=== PATIENT | male | born 1990 | race Caucasian/White ===

== ENCOUNTER 2016-07-17 09:54 | Emergency (ER) | payer BC ==
[2016-07-17 10:43] VITALS: BP 170/93
--- NOTE | 2016-07-17 11:49 | UC ---
Respiratory Complaint HPI - HPI Summary HPI Summary: The patient comes in today for: 1. Cough, rhinitis: Onset: 2 weeks ago. Palliative/provocative: Nothing makes it better or worse except some tea. Quality: harsh cough. Region: Upper respiratory Severity: 0/10 Time: Cough comes and goes. Associated symptoms: He has been traveling on the airlines recently. Rhinitis: Yellow material. Cough: Present--yellow. Fevers: None Chest pain: None Dyspnea: None. Treatment: Sudafed. Wheezing: None. Nocturnal: The cough keeps him up at night. He states that he does not have any previous sleep problems. * - History of Current Complaint Chief Complaint: UCRespiratory Stated Complaint: URI Time Seen by Provider: 07/17/16 11:41 - Allergies/Home Medications Allergies/Adverse Reactions: Allergies Allergy/AdvReac Type Severity Reaction Status Date / Time No Known Allergies Allergy Verified 10/14/15 21:03 PMH/Surg Hx/FS Hx/Imm Hx Previously Healthy: No Endocrine History Of: Denies: Diabetes, Thyroid Disease, Hyperthyroidism, Hypothyroidism, Dyslipidemia Cardiovascular History Of: Denies: Cardiac Disorders, Hypertension - taking sudafed, Pacemaker/ICD, Myocardial Infarction, Congestive Heart Failure, Atrial Fibrillation, Deep Vein Thrombosis, Bleeding Disorders Respiratory History Of: Denies: COPD, Asthma, Bronchitis, Pneumonia, Pulmonary Embolism GI/ History Of: Reports: Gastroesophageal Reflux Denies: Ulcer, Gastrointestinal Bleed, Gall Bladder Disease, Kidney Stones, Diverticulitis, Renal Disease, Urosepsis Neurological History Of: Denies: TIA, CVA, Dementia, Seizures, Migraine Psychological History Of: Denies: Anxiety, Depression, Bipolar Disorder, Schizophrenia, Post Traumatic Stress Disorder Cancer History Of: Denies: Lung Cancer, Colorectal Cancer, Breast Cancer, Prostate Cancer, Cervical Cancer Other History Of: Negative For: HIV, Hepatitis B, Hepatitis C, Anticoagulant Therapy - Surgical History Surgical History: Yes Surgery Procedure, Year, and Place: adenoids removed as a child - Family History Known Family History: Positive: Cardiac Disease Negative: Hypertension, Renal Disease - Social History Occupation: Employed Full-time Alcohol Use: Rare Substance Use Type: None Smoking Status (MU): Never Smoked Tobacco - Immunization History Most Recent Influenza Vaccination: has not had Most Recent Tetanus Shot: up to date Review of Systems Constitutional: Negative Skin: Negative Eyes: Negative ENT: Nasal Discharge Respiratory: Cough Cardiovascular: Negative Gastrointestinal: Negative Genitourinary: Negative All Other Systems Reviewed And Are Negative: Yes Physical Exam Triage Information Reviewed: Yes Appearance: Well-Appearing, No Pain Distress, Well-Nourished Vital Signs: Initial Vital Signs Temp 98.8 F 07/17/16 10:39 Pulse 106 07/17/16 10:39 Resp 22 07/17/16 10:39 BP 170/93 07/17/16 10:39 Pulse Ox 100 07/17/16 10:39 Vital Signs Reviewed: Yes Eyes: Positive: Conjunctiva Clear. Negative: Discharge ENT: Positive: Normal ENT inspection. Negative: Pharyngeal erythema, Nasal congestion, Nasal drainage, TM bulging, TM dull, TM red, Tonsillar swelling, Tonsillar exudate Dental: Negative: Gross Decay/Caries @, Dental Fracture @ Neck: Positive: Supple, Nontender, No Lymphadenopathy. Negative: Nuchal Rigidity Respiratory: Positive: Lungs clear, No respiratory distress, No accessory muscle use. Negative: Crackles, Wheezing Cardiovascular: Positive: RRR, No Murmur Abdomen Description: Positive: Nontender, No Organomegaly, Soft. Negative: Distended, Guarding Musculoskeletal: Positive: Strength Intact, ROM Intact, No Edema Neurological: Positive: Alert, Muscle Tone Normal Psychological: Positive: Age Appropriate Behavior, Consolable Skin: Negative: rashes, breakdown UC Diagnostic Evaluation - Laboratory O2 Sat by Pulse Oximetry: 100 Respiratory Course/Dx - Course Course Of Treatment: Patient told of his treatment options. He wants some medication to suppress his cough for him to get some sleep. - Differential Dx/Diagnosis Differential Diagnosis/HQI/PQRI: Asthma, Bronchitis, Laryngitis, Sinusitis Provider Diagnoses: Sinusitis. Bronchitis Discharge - Discharge Plan Condition: Stable Disposition: HOME Patient Education Materials: Sinusitis (ED), Acute Bronchitis (ED) Referrals: Rach Boyd MD [Primary Care Provider] - 1 Week (Please see your primary care provider in a week to see how well you are doing. If you get worse, please be seen sooner in the ER or through us.)
== END 2016-07-17 12:02 | disposition home or self-care (01) ==
LOC: UCEAST 09:54
DX: J32.9 Chronic sinusitis, unspecified (principal); J40 Bronchitis, not specified as acute or chronic; K21.9 Gastro-esophageal reflux disease without esophagitis
CPT/HCPCS: 99211; G0463

== ENCOUNTER 2017-03-14 01:56 | Emergency (ER) | payer BC ==
[2017-03-14] MEDS ORDERED: predniSONE TAB* 20 MG PO ONE (03:12)
[2017-03-14 03:36] VITALS: BP 152/56
--- NOTE | 2017-03-27 21:12 | ED ---
Behzad Johnson Julia, scribed for Patel Marie MD on 03/14/17 at 0350 . Allergic Reaction/Systemic - HPI Summary HPI Summary: This patient is a 26 year old M presenting to [facility] with a chief complaint of allergic reaction to food occurring at 12:20 today. Patient reports gum numbness and pruritus and swelling of the face worse surrounding his L eye. The patient rates the pain 1/10 in severity. Pt took hydroxyzine [facility]. Pt has rosacea at baseline. - History of Current Complaint Chief Complaint: EDAllergicReaction Time Seen by Provider: 03/14/17 03:03 Hx Obtained From: Patient Onset/Duration: Sudden Onset Timing: Constant, Lasting Minutes Pain Intensity: 1 Pain Scale Used: 0-10 Numeric Character: Swelling, Pruritus Associated Signs And Symptoms: Positive: Other: - gum numbness, facial swelling and pruitis - Related Hx Possible Reaction To: Food - Allergies/Home Medications Allergies/Adverse Reactions: Allergies Allergy/AdvReac Type Severity Reaction Status Date / Time No Known Allergies Allergy Verified 10/14/15 21:03 PMH/Surg Hx/FS Hx/Imm Hx Endocrine/Hematology History: Denies: Hx Anticoagulant Therapy, Hx Diabetes, Hx Thyroid Disease Cardiovascular History: Denies: Hx Congestive Heart Failure, Hx Deep Vein Thrombosis, Hx Hypertension - taking sudafed, Hx Myocardial Infarction, Hx Pacemaker/ICD Respiratory History: Denies: Hx Asthma, Hx Chronic Obstructive Pulmonary Disease (COPD), Hx Lung Cancer, Hx Pneumonia, Hx Pulmonary Embolism GI History: Denies: Hx Gall Bladder Disease, Hx Gastrointestinal Bleed, Hx Ulcer, Hx Urosepsis History: Denies: Hx Kidney Stones, Hx Renal Disease Neurological History: Denies: Hx Dementia, Hx Migraine, Hx Seizures, Hx Transient Ischemic Attacks (TIA) Psychiatric History: Denies: Hx Anxiety, Hx Depression, Hx Schizophrenia, Hx Bipolar Disorder - Surgical History Surgery Procedure, Year, and Place: adenoids removed as a child Infectious Disease History: No Infectious Disease History: Denies: Hx Clostridium Difficile, Hx Hepatitis, Hx Human Immunodeficiency Virus (HIV), Hx of Known/Suspected MRSA, Hx Shingles, Hx Tuberculosis, Hx Known/ Suspected VRE, Hx Known/Suspected VRSA, History Other Infectious Disease, Traveled Outside the [place] in Last 30 Days - Family History Known Family History: Positive: Cardiac Disease Negative: Hypertension, Renal Disease - Social History Alcohol Use: Rare Substance Use Type: Reports: None Smoking Status (MU): Never Smoked Tobacco Review of Systems Positive: Dental Pain - gum numbness Positive: Other - facial swelling and pruitius, worse around L eye All Other Systems Reviewed And Are Negative: Yes Physical Exam Triage Information Reviewed: Yes Vital Signs On Initial Exam: Initial Vitals Temp Pulse Resp BP Pulse Ox 97.2 F 79 22 166/84 97 03/14/17 02:02 03/14/17 02:02 03/14/17 02:02 03/14/17 02:02 03/14/17 02:02 Vital Signs Reviewed: Yes Appearance: Positive: Obese - morbidly Skin: Positive: Skin Color Reflects Adequate Perfusion, Erythema @ - face Head/Face: Positive: Other - swelling of L orbital area Eyes: Positive: Other: - swelling around L eye ENT: Positive: Normal ENT inspection Respiratory/Lung Sounds: Positive: Wheezes Cardiovascular: Positive: Normal Abdomen Description: Positive: Nontender Musculoskeletal: Positive: Normal Neurological: Positive: Normal Psychiatric: Positive: Normal AVPU Assessment: Alert Diagnostics - Vital Signs Vital Signs Temp Pulse Resp BP Pulse Ox 03/14/17 03:30 73 20 152/56 91 03/14/17 03:09 81 20 160/66 99 03/14/17 03:08 82 17 97 03/14/17 02:02 97.2 F 79 22 166/84 97 - Laboratory Lab Statement: Any lab studies that have been ordered have been reviewed, and results considered in the medical decision making process. Allergic Reaction Course/Dx - Course Course Of Treatment: Patient presents with allergic reaction to food occurring at 12:20 today. Patient reports gum numbness and pruritus and swelling of the face worse surrounding his L eye. Patient took hydroxyzine [facility]. Pt was given Prednisone. Pt imporved and was dischared with dx of allergic reaction. - Diagnoses Provider Diagnoses: Allergic reaction Discharge - Discharge Plan Condition: Stable Disposition: HOME Prescriptions: predniSONE TAB* [Deltasone TAB*] 40 mg PO DAILY #10 tab Patient Education Materials: General Allergic Reaction (ED) Referrals: Rach Boyd MD [Primary Care Provider] - Additional Instructions: Patient is given prescription for Prednisone. RETURN TO THE EMERGENCY DEPARTMENT FOR CHANGING OR WORSENING SYMPTOMS. The documentation as recorded by the scribe, Roetzer,Xiao accurately reflects the service I personally performed and the decisions made by me, Patel Marie MD.
== END 2017-03-14 04:06 | disposition home or self-care (01) ==
LOC: ED 01:56
DX: T78.1XXA Other adverse food reactions, not elsewhere classified, initial encounter (principal); R20.0 Anesthesia of skin; L29.9 Pruritus, unspecified; R22.0 Localized swelling, mass and lump, head
CPT/HCPCS: 99282; J7512

== ENCOUNTER 2017-05-14 09:45 | Emergency (ER) | payer BC ==
--- NOTE | 2017-05-14 11:22 | RAD ---
Indication: Epigastric abdominal pain since May 09, 2017. Pain associated with eating. Comparison: No relevant prior exams available on the [facility] PACS for comparison. Technique: RIGHT upper quadrant ultrasound. Report: Large body habitus limits acoustic window. Appropriate direction flow documented in the portal and hepatic veins. 19.3 cm liver is increased in echogenicity. Negative for focal hepatic lesions. Negative for intrahepatic biliary dilatation. 6 mm common bile duct. Adequately distended gallbladder with multiple small dependent stones. Potential small volume of biliary sludge. Normal 2.4 mm gallbladder wall. Negative for pericholecystic fluid. Negative for sonographic Carrillo's sign. The pancreas is poorly visualized due to body habitus and bowel gas. No gross abnormality of the visualized pancreatic head and body. Negative for ascites. 11.7 cm RIGHT kidney is unremarkable. IMPRESSION: 1. Hepatomegaly with hepatosteatosis. 2. Cholelithiasis without secondary findings to suggest acute cholecystitis.
[2017-05-14 12:08] VITALS: BP 139/91
--- NOTE | 2017-05-14 12:30 | UC ---
- Progress Note Progress Note: Assumed care pending US. Known Gallstones. GB: Fatty liver, gallstones without cholelithiasis. He has no pain now. Most discomfort is post parandial. Re-Evaluation - Re-Evaluation First Eval Re-Evaluation Time: 12:30 Change: Improved Course/Dx - Course Course Of Treatment: Epigastric pain in morbidly obese gentleman. Known gallstones. US neg otherwise. Tx symptomatically. - Diagnoses Provider Diagnoses: Epigastric abdominal pain, Gastritis, Fatty infiltration of liver, Morbid obesity Discharge - Sign-Out/Discharge Documenting (check all that apply): Discharge - Discharge Plan Condition: Good Disposition: HOME Prescriptions: Famotidine TAB* [Pepcid 20 MG TAB*] 20 mg PO BID #20 tab Sucralfate TAB* [Carafate*] 1 gm PO ACHS #60 tab Referrals: Lory Cheek MD [Primary Care Provider] - Additional Instructions: double your omeprazole for the next 3-4 days. Avoid acidic foods, alcohol, caffeine. Return if worse, fevers, vomiting or other concerns. - Billing Disposition and Condition Condition: GOOD Disposition: HOME
--- NOTE | 2017-05-22 20:49 | UC ---
Yosef Johnson Jennifer, scribed for Antonia Kwok DO on 05/14/17 at 1010 . Abdominal Pain Male HPI - HPI Summary HPI Summary: The patient is a 26 year old male who complains of intermittent upper abdominal pain that began five days ago. The patient rates it a 6/10 and describes it as a sharp pain that lasts an hour with each episode. He reports that the abdominal pain would occur after every meal when it first began, but yesterday he switched to the BRAT diet and the abdominal pain only occurred after some meals. [facility]. The patient additionally complains of nausea, vomiting, and sweating when the pain occurs. He denies diarrhea. He adds that he had similar abdominal pain in college that was related to his diet and is currently trying to lose weight. - History of Current Complaint Chief Complaint: UCAbdominalPain Stated Complaint: ABD PAIN Time Seen by Provider: 05/14/17 09:47 Hx Obtained From: Patient Onset/Duration: Sudden Onset, Lasting Days - five days, Other - Intermittent pain; no pain in ICCC Timing: Intermittent Episodes Lasting: - one hour Severity Initially: Mild Severity Currently: None Pain Intensity: 0 Pain Scale Used: 0-10 Numeric Location: Epigastric Radiates: No Character: Sharp Aggravating Factor(s): Food Alleviating Factor(s): Nothing Associated Signs And Symptoms: Positive: Nausea, Vomiting, Other - Sweaty with onset of abdominal pain. Negative: Diarrhea - Allergies/Home Medications Allergies/Adverse Reactions: Allergies Allergy/AdvReac Type Severity Reaction Status Date / Time No Known Allergies Allergy Verified 05/14/17 09:58 Home Medications: Home Medications Bupropion XL* [Wellbutrin XL *] 150 mg PO DAILY 05/14/17 [History Confirmed ] PMH/Surg Hx/FS Hx/Imm Hx Previously Healthy: No - Previous abdominal pain GI/ History: Gastroesophageal Reflux, Other Other GI/ History: Gall stones Other History Of: Negative For: HIV, Hepatitis B, Hepatitis C, Anticoagulant Therapy - Surgical History Surgical History: Yes Surgery Procedure, Year, and Place: adenoids removed as a child - Family History Known Family History: Positive: Cardiac Disease, Diabetes, Other - [place] Negative: Hypertension, Renal Disease - Social History Occupation: Employed Full-time Alcohol Use: Rare Substance Use Type: None Smoking Status (MU): Never Smoked Tobacco - Immunization History Most Recent Influenza Vaccination: has not had Most Recent Tetanus Shot: up to date Review of Systems Constitutional: Other - Sweating with onset of abdominal pain Gastrointestinal: Negative - Diarrhea, Abdominal Pain, Vomiting, Nausea All Other Systems Reviewed And Are Negative: Yes Physical Exam - Summary Physical Exam Summary: Appearance: Well-Appearing, No Pain Distress, Well-Nourished Eyes: conjunctiva clear, no discharge ENT: Hearing grossly normal, no muffled/hoarse voice. Neck: Normal, Supple Respiratory/Lung Sounds: Lungs clear, Normal breath sounds, No respiratory distress, No accessory muscle use Cardiovascular: RRR, No murmur Abdomen: Nontender, Soft, no guarding, not distended Bowel Sounds: Present Musculoskeletal: Normal Neurological: Alert, muscle tone normal Psychiatric:Normal, age appropriate behavior Skin: Normal, Warm, Dry, Normal color Triage Information Reviewed: Yes Vital Signs: Initial Vital Signs Temp 98 F 05/14/17 10:00 Pulse 78 05/14/17 10:00 Resp 16 05/14/17 10:00 BP 150/87 05/14/17 10:00 Pulse Ox 100 05/14/17 10:00 Vital Signs Reviewed: Yes Abd Pain Male Course/Dx - Course Course Of Treatment: Medications reviewed. High blood pressure noted. - Differential Dx/Clinical Impression Provider Diagnoses: Abdominal pain, Elevated blood pressure without diagnosis of hypertension Discharge - Sign-Out/Discharge Documenting (check all that apply): Sign-Out Patient Signing out patient TO: Sam Beaver - Pending Gallbladder US - Discharge Plan Condition: Good Disposition: HOME Prescriptions: Famotidine TAB* [Pepcid 20 MG TAB*] 20 mg PO BID #20 tab Sucralfate TAB* [Carafate*] 1 gm PO ACHS #60 tab Patient Education Materials: Gastritis (ED) Referrals: Lory Cheek MD [Primary Care Provider] - Additional Instructions: double your omeprazole for the next 3-4 days. Avoid acidic foods, alcohol, caffeine. Return if worse, fevers, vomiting or other concerns. - Billing Disposition and Condition Condition: GOOD Disposition: HOME The documentation as recorded by the Yosef york Jennifer accurately reflects the service I personally performed and the decisions made by , Antonia Kwok DO.
== END 2017-05-14 12:39 | disposition home or self-care (01) ==
LOC: UCEAST 09:45
DX: R10.13 Epigastric pain (principal); K29.70 Gastritis, unspecified, without bleeding; K76.0 Fatty (change of) liver, not elsewhere classified; E66.01 Morbid (severe) obesity due to excess calories; R61 Generalized hyperhidrosis; R03.0 Elevated blood-pressure reading, without diagnosis of hypertension; K21.9 Gastro-esophageal reflux disease without esophagitis; K80.20 Calculus of gallbladder without cholecystitis without obstruction
CPT/HCPCS: 76705; 99212; G0463

== ENCOUNTER 2019-01-22 16:48 | Emergency (ER) | payer BC, OTHER ==
--- OUTSIDE RECORDS SUMMARY | 2019-01-22 16:53 | XMS REPORT | Continuity of Care Document ---
:1990 External Reference #:[id number] Author Name Edgardo Gil, OD Address [address] [place] [address] Care Team Providers Name Role Phone Lory Cheek MD Care Team Information Wilton Weaver [phone] Problems Description No Information Available Social History Type Date Description Comments Sex Unknown ETOH Use Denies alcohol use Tobacco Use Start: Unknown Patient has never smoked Smoking Status Reviewed: 12/12/18 Patient has never smoked Allergies, Adverse Reactions, Alerts Description No Known Drug Allergies Medications Active Medications SIG Qnty Indications Ordering Provider Date Bupropion Hydrochloride take 1 tablet by Unknown ER (XL) mouth once daily 150mg Tablets ER 24HR Pantoprazole Sodium take 1 tablet by Unknown 40mg mouth once daily Tablets DR Lisinopril Unknown 30mg Tablets Immunizations Description No Information Available Vital Signs Date Vital Result Comment 12/12/2018 8:45am Intraocular Pressure Right Eye 16 mmHg Intraocular Pressure Left Eye 16 mmHg Results Description No Information Available Procedures Date Code Description Status 12/12/2018 57614 Eye Exam New Comprehensive Completed Medical Devices Description No Information Available Encounters Description No Information Available Assessments Date Code Description Provider 12/12/2018 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
--- OUTSIDE RECORDS SUMMARY | 2019-01-22 16:53 | XMS REPORT | Summary of Care ---
:1990 Author Organization [facility] Address [address] [address] Care Team Providers Name Role Phone Lory Cheek MD Primary Care Provider Reason for Visit Sleep Study (Routine) Status Reason Specialty Diagnoses / Referred By Referred To Procedures Contact Contact Closed Sleep Disorder Diagnoses JAMEY (obstructive sleep apnea) Kristin Perez, [facility] Sleep Lab [id number] [id number] [facility] CRE[facility] [address] [facility] [address] [place] [phone] Phone: Encounter Details Date Type Department Care Team Description 12/13/2018 Hospital Encounter [facility] Sleep Lab Outpatient [address] [id number] Allergies No Known Allergiesdocumented as of this encounter (statuses as of 12/15/2018) Medications Medication Sig Dispensed Refills Start Date End Date Status buPROPion XL (WELLBUTRIN Take 1 Tab by 90 Tab 3 11/21/2018 Active XL) 150 MG Oral TABLET mouth DAILY. SR 24 HR 24 hour tabletIndications: Depression, unspecified depression type pantoprazole (PROTONIX) Take 1 Tab by 90 Tab 3 11/21/2018 Active 40 MG Oral Tab mouth DAILY. ECIndications: Gastritis, presence of bleeding unspecified, unspecified chronicity, unspecified gastritis type Lisinopril 30 MG Oral Take 1 Tab by 90 Tab 3 11/21/2018 Active TabIndications: mouth DAILY. Essential hypertension documented as of this encounter (statuses as of 12/15/2018) Active Problems Problem Noted Date Depression 08/20/2017 Essential hypertension 07/05/2017 BMI 50.0-59.9, adult 03/06/2014 Overview: sustained wt reduction with portion control and sustained routine exercise. Gall stones 03/06/2014 documented as of this encounter (statuses as of 12/15/2018) Resolved Problems Problem Noted Date Resolved Date BMI 60.0-69.9, adult 11/03/2015 07/05/2017 documented as of this encounter (statuses as of 12/15/2018) Immunizations Name Administration Dates Next Due Influenza (IM) Preservative Free 11/18/2018, 11/05/2017 TDAP Vaccine 11/29/2018 documented as of this encounter Social History Tobacco Use Types Packs/Day Years Used Date Never Smoker Smokeless Tobacco: Never Used Alcohol Use Drinks/Week oz/Week Comments No Sex Assigned at Date Recorded Not on file Job Start Date Occupation Industry Not on file Not on file Not on file Travel History Travel Start Travel End No recent travel history available. documented as of this encounter Last Filed Vital Signs Not on filedocumented in this encounter Plan of Treatment Date Type Specialty Care Team Description 03/11/2019 Office Visit Family Practice Lory Cheek MD [address] [place] [address] [phone] Name Type Priority Associated Diagnoses Order Schedule REFER TO SLEEP STUDY Referral Routine JAMEY (obstructive sleep Ordered: 11/21 LAB apnea) Health Maintenance Due Date Last Done Comments DEPRESSION SCREENING 11/22/2019 11/21/2018, 10/16/2016 INFLUENZA VACCINE Completed 11/18/2018, 11/05/2017 HPV IMMUNIZATION SERIES Aged Out No longer eligible based on patient's age to complete this topic MENINGOCOCCAL VACCINE IMM Aged Out No longer eligible based on patient's age to complete this topic PNEUMOCOCCAL 0-64 YRS Aged Out No longer eligible based on patient's age to complete this topic documented as of this encounter Goals Goal Patient Goal Associated Recent Patient-Stated? Author Type Problems Progress Blood Pressure Blood 124/78 No Adia, < 140/90 Pressure (11/29/2018 Lory Gautam, 8:27 AM EDT) Note: This is an individualized treatment (blood pressure) goal for Epifanio Pedro: Displayed above (on the left) is your goal for blood pressure control. Your most recent blood pressure is also shown above, on the right. You should try to achieve blood pressures that are lower than your goal listed above (on the left). Depression screen Depression 17 (10/16/2016 4:08 PM Lory Rowell (PHQ-9) total score < 5 EDT) MD Lotus Note: This is an individualized treatment (depression) goal for Epifanio Pedro: Displayed above is your goal for a depression screening (PHQ-9) score that would indicate good control of your depression. Keep a regular sleep schedule Lifestyle Lory Rowell MD Note: This is an individualized lifestyle goal for Epifanio Pedro: Please maintain a regular sleep schedule. This may help with some symptoms of depression. Weight loss vs. 18 Lifestyle 9 (11/29/2018 8:27 AM Lory Rowell mo max (lbs) >= 10 EDT) Note: This is an individualized lifestyle goal for Epifanio Pedro: Your body mass index (BMI) is more than 30. You should lose weight. A reasonable starting goal is to lose 10 pounds. Displayed above is how many pounds you have lost thus far towards your 10 pound weight loss goal. Take all prescribed medications as Self-management Lory Rowell MD directed Note: This is an individualized self-management goal for Epifanio Pedro: Please take all prescribed medications as directed. 1. Do not skip doses. If you cannot afford your medications, talk with your doctor. 2. Use a pill reminder system such as a pill box if needed. Your pharmacist can help you with this. 3. Contact your Pharmacy 5 days before your medication runs out. If you cannot take your medications for any reasons, talk with your doctor. 4. Please bring all of your medication bottles and inhalers (or a list of all your medications/inhalers) with you to every visit. Potential barriers to meeting all of your care plan goals will continue to be addressed on an ongoing basis. documented as of this encounter Results Not on filedocumented in this encounter Insurance Payer Benefit Plan / Subscriber ID Effective Dates Phone Address Type Group [employer] VIVIAN xxxxxxxxxx 2017-Present [employer] PARAM Guarantor Name Account Type Relation to Date of Phone Billing Address Patient Epifanio Pedro Personal/Famil 1990 [phone]) [address] [phone] [place], [place] (Work) [id number] documented as of this encounter
--- OUTSIDE RECORDS SUMMARY | 2019-01-22 16:53 | XMS REPORT | Summary of Care ---
:1990 Author Organization [facility] Address [address] [facility] [place] [address] Care Team Providers Name Role Phone Lory Cheek MD Primary Care Provider Reason for Visit Reason Comments Physical Encounter Details Date Type Department Care Team Description 11/29/2018 Office Visit [facility] Cheek adult exam (Primary Dx); Practice Lory Gautam MD Need for vaccination; [address] [facility] Essential hypertension; [place] [address] [place] [address] Depression, unspecified depression type; [phone] Weight gain; Impaired fasting glucose Allergies No Known Allergiesdocumented as of this encounter (statuses as of 11/29/2018) Medications Medication Sig Dispensed Refills Start Date [...] as of this encounter (statuses as of 11/29/2018) Active Problems Problem Noted Date Depression 08/20/2017 Essential hypertension 07/05/2017 BMI 50.0-59.9, adult 03/06/2014 Overview: sustained wt reduction with portion control and sustained routine exercise. Gall stones 03/06/2014 documented as of this encounter (statuses as of 11/29/2018) Resolved Problems Problem Noted Date Resolved Date BMI 60.0-69.9, adult 11/03/2015 07/05/2017 documented as of this encounter (statuses as of 11/29/2018) Immunizations Name Administration Dates Next Due Influenza [...] of this encounter Last Filed Vital Signs Vital Sign Reading Time Taken Comments Blood Pressure 124/78 11/29/2018 8:27 AM EDT Pulse 76 11/29/2018 8:27 AM EDT Temperature - - Respiratory Rate - - Oxygen Saturation 98% 11/29/2018 8:27 AM EDT Inhaled Oxygen Concentration - - Weight 219.5 kg (484 lb) 11/29/2018 8:27 AM EDT Height 195.6 cm (6' 5") 11/29/2018 8:27 AM EDT Body Mass Index 57.39 11/29/2018 8:27 AM EDT documented in this encounter Patient Instructions Patient InstructionsLory Cheek MD - 11/29/2018 8:40 AM EDT I did your physical exam today. I do hear a heart murmur so agree with your having an echocardiogram. I also agree with a sleep study and we will check on this consult for you today. Your eye appear to push out a bit, which can be seen in in thyroid disorders. Please have an eye exam done rule out thyroid disease or exophthalmus. I ordered thyroid laboratory tests on you today as well as an A1C diabetes screen. Continue current medications. DIET AND EXERCISE: Exercise is recommended 150 minutes weekly: 30 minutes five days a week of moderate exercise such as walking. In addition is it recommended you have two days weekly of working all your major muscle groups (arms, legs) such as with weight lifting or other exercise. I recommend a well balanced healthy diet, portion control, drink plenty of fluids. The Mediterranean diet is an excellent diet. Be sure to get adequate sleep at night, 8 hours. documented in this encounter Progress Notes Lory Cheek MD - 11/29/2018 8:40 AM EDT Nursing Notes: Kristni Willis LPN 11/29/2018 9:02 AM Signed Chief Complaint Patient presents with Physical Subjective: Epifanio Pedro is a 28-y.o. year old male who presents for annual physical exam and hypertension recheck. He has started to walk and diet again, weight is down 9 lb in 8 days. He is back on his medications and feeling better. His echocardiogram is scheduled. Patient Active Problem List Diagnosis BMI 50.0-59.9, adult (HCC) Gall stones Essential hypertension Depression Acute new problems include: He is still awaiting a home sleep study Health maintainance concerns include: he cannot recall his last tetanus vaccine Health Maintenance Topic Date Due DEPRESSION SCREENING 11/22/2019 INFLUENZA VACCINE Completed HPV IMMUNIZATION SERIES Aged Out MENINGOCOCCAL VACCINE IMM Aged Out PNEUMOCOCCAL 0-64 YRS Aged Out Immunization History Administered Date(s) Administered Influenza (IM) Preservative Free 11/05/2017, 11/18/2018 Pended Date(s) Pended TDAP Vaccine 11/29/2018 Recent laboratory tests reviewed with patient: Lab on 11/22/2018 Component Date Value Ref Range Status Cholesterol 11/22/2018 161 <200 mg/dl Final HDL Cholesterol 11/22/2018 26* >40 mg/dl Final Triglycerides 11/22/2018 105 <150 mg/dl Final LDL Cholesterol 11/22/2018 114* <100 MG/DL Final Cholesterol / HDL Ratio 11/22/2018 6.2 RATIO Final LDL / HDL Ratio 11/22/2018 4.4 Final Non-HDL Cholesterol 11/22/2018 135* 0 - 130 MG/DL Final Sodium 11/22/2018 138 134 - 145 mmol/L Final Potassium 11/22/2018 4.3 3.5 - 5.1 mmol/L Final Chloride 11/22/2018 102 98 - 107 mmol/L Final CO2 11/22/2018 24 22 - 30 mmol/L Final Calcium 11/22/2018 8.8 8.3 - 10.1 mg/dl Final Albumin 11/22/2018 4.1 3.5 - 5.0 g/dl Final BUN 11/22/2018 14 9 - 20 mg/dl Final Creatinine 11/22/2018 0.9 0.8 - 1.5 mg/dl Final Glucose 11/22/2018 118* 70 - 99 mg/dl Final Total Protein 11/22/2018 8.0 6.3 - 8.2 g/dl Final Total Bilirubin 11/22/2018 0.6 0.0 - 1.1 MG/DL Final AST 11/22/2018 31 17 - 59 U/L Final ALT 11/22/2018 39 21 - 72 U/L Final Alkaline Phosphatase 11/22/2018 58 40 - 150 U/L Final eGFR 11/22/2018 >60 See Interpretation Below ml/min/1.73ml Sq Final Estimated GFR Interpretation: Above 60ml/min/1.73m2 = Normal Renal Function 30-59 ml/min/1.73m2 = Stage 3 Chronic Kidney Disease 15-29 ml/min/1.73m2 = Stage 4 Chronic Kidney Disease Less than 15 ml/min/1.73m2 = Stage 5 Chronic Kidney Disease The GFR value is calculated using the Modification of Diet in Renal Disease ( MDRD) Study Equation which can be found at: https://www.kidney.org/content/hhgo-rocoy-zoxpwsxc BUN/Creatinine Ratio 11/22/2018 16 6 - 22 RATIO Final Anion Gap 11/22/2018 12* 3 - 11 mmol/L Final A/G Ratio 11/22/2018 1.1 0.8 - 2.0 ratio Final Health Maintenance Topic Date Due DEPRESSION SCREENING 11/22/2019 INFLUENZA VACCINE Completed HPV IMMUNIZATION SERIES Aged Out MENINGOCOCCAL VACCINE IMM Aged Out PNEUMOCOCCAL 0-64 YRS Aged Out Past Medical History: Diagnosis Date Angioedema seen in [facility] twice after eating: suspects a dry rub BMI 50.0-59.9, adult ([facility]) 03/06/2014 sustained wt reduction with portion control and sustained routine exercise. Essential (primary) hypertension borderline in the past Gall stones 03/06/2014 GERD (gastroesophageal reflux disease) take omeprazole, x 4 years JAMEY (obstructive sleep apnea) was in cpap as teen Current Outpatient Medications Medication Sig buPROPion XL (WELLBUTRIN XL) 150 MG Oral TABLET SR 24 HR 24 hour tablet Take 1 Tab by mouth DAILY. Lisinopril 30 MG Oral Tab Take 1 Tab by mouth DAILY. pantoprazole (PROTONIX) 40 MG Oral Tab EC Take 1 Tab by mouth DAILY. No current facility-administered medications for this visit. Patient has no known allergies. Social History Tobacco Use Smoking status: Never Smoker Smokeless tobacco: Never Used Substance Use Topics Alcohol use: No Drug use: No Family History Problem Relation Age of Onset Diabetes Mother No Known Problems Father No Known Problems Brother Heart Other paternal great grandfather Diabetes Maternal Grandmother Cancer Maternal Grandmother non-hodkin lymphoma Diabetes Maternal Aunt Diabetes Maternal Uncle Review of Systems - General ROS: negative for - chills or fever, Has gained 60 lb over the last year ENT ROS: negative for - headaches, nasal congestion, nasal discharge, sinus pain , sore throat or visual changes Respiratory ROS: negative for - cough, hemoptysis or shortness of breath Cardiovascular ROS: negative for - chest pain, dyspnea on exertion, edema or palpitations Gastrointestinal ROS: no abdominal pain, change in bowel habits, or black or bloody stools Neuro: denies headache, focal weakness, numbness Psych: depression is controlled on Bupropion. Objective: BP 124/78 (BP Location: Right arm, Patient Position: Sitting) Pulse 76 Ht 6' 5 " (1.956 m) Wt 484 lb (219.5 kg) SpO2 98% BMI 57.39 kg/m2 Physical Examination: General appearance - alert, well appearing, and in no distress Mental status - alert, oriented to person, place, and time, normal mood, behavior, speech, dress, motor activity, and thought processes Eyes - pupils equal and reactive, extraocular eye movements intact, sclera anicteric, mild exophthalmus noted Ears - bilateral TM's and external ear canals normal Neck - supple, no cervical or supraclavicular adenopathy, carotids upstroke normal bilaterally, no bruits, thyroid exam: thyroid is normal in size without nodules or tenderness, no neck masses palpated. Chest/Lungs - clear to auscultation, no wheezes, rales or rhonchi, symmetric air entry, good aeration Heart - normal rate, regular rhythm, normal S1, S2, 2/6 systolic murmurs right upper sternal border and left upper sternal border noted, no rubs, clicks or gallops Abdomen - soft, non tender on palpation, nondistended, no masses or hepatosplenomegaly, bowel soundsnormal, normal to percussion, no guarding or rebound. No costervertebral angle tenderness Neurological - alert, oriented, normal speech, no gross focal findings or movement disorder noted Extremities - dorsalis pedis pulses normal, no pedal edema, no clubbing or cyanosis Assessment/Plan: 1. Well adult exam 2. Need for vaccination 3. Essential hypertension 4. Depression, unspecified depression type 5. Weight gain 6. Impaired fasting glucose 1. Routine Screening: Cholesterol: reviewed Screen for Type 2 DM w/fasting plasma glucose: Elevated, check A1C today 2. Immunizations given today: Tdap 3. Preventative Counseling: use of illicit drugs, proper exercise, eye exams, dental exams Patient Instructions I did your physical exam today. I do hear a heart murmur so agree with your having an echocardiogram. I also agree with a sleep study and we will check on this consult for you today. Your eye appear to push out a bit, which can be seen in in thyroid disorders. Please have an eye exam done rule out thyroid disease or exophthalmus. I ordered thyroid laboratory tests on you today as well as an A1C diabetes screen. Continue current medications. DIET AND EXERCISE: Exercise is recommended 150 minutes weekly: 30 minutes five days a week of moderate exercise such as walking. In addition is it recommended you have two days weekly of working all your major muscle groups (arms, legs) such as with weight lifting or other exercise. I recommend a well balanced healthy diet, portion control, drink plenty of fluids. The Mediterranean diet is an excellent diet. Be sure to get adequate sleep at night, 8 hours. '. Lory Cheek MD documented in this encounter Plan of Treatment Date Type Specialty Care Team Description 12/04/2018 Orders Only Cardiology 03/11/2019 Office Visit Family [facility] Lory Cheek MD [facility] [place] [address] [phone] Name Type Priority Associated Diagnoses Date/Time THYROID STIMULATING HORMONE Lab Routine Weight gain 11/29/2018 9:41 AM EDT FREE T4 Lab Routine Weight gain 11/29/2018 9:41 AM EDT GLYCOHEMOGLOBIN A1C Lab Routine Impaired fasting 11/29/2018 9:41 AM glucose EDT Name Type Priority Associated Diagnoses Order Schedule THYROID STIMULATING Lab Routine Weight gain Expected: HORMONE 11/29/2018 (Approximate), Expires: 11/30/2019 FREE T4 Lab Routine Weight gain Expected: 11/29/2018 (Approximate), Expires: 11/30/2019 GLYCOHEMOGLOBIN A1C Lab Routine Impaired fasting Expected: glucose 11/29/2018 (Approximate), Expires: 11/30/2019 ADMINISTRATION VACCINE Procedures Routine Need for vaccination Ordered: SINGLE 11/29/2018 Health Maintenance Due Date Last Done Comments [...] vs. 18 Lifestyle 9 (11/29/2018 8:27 AM No Lory Cheek mo max (lbs) >= 10 EDT) Note: This is an individualized lifestyle goal for Epifanio Pedro: Your body mass index (BMI) is more than 30. You should lose weight. A reasonable starting goal is to lose 10 pounds. Displayed above is how many pounds you have lost thus far towards your 10 pound weight loss goal. Take all prescribed medications as Self-management No Lory Cheek MD directed Note: This is an individualized [...] Results Not on filedocumented in this encounter Visit Diagnoses Diagnosis Well adult exam - Primary Routine general medical examination at a health care facility Need for vaccination Need for prophylactic vaccination and inoculation against unspecified single disease Essential hypertension Unspecified essential hypertension Depression, unspecified depression type Weight gain Abnormal weight gain Impaired fasting glucose documented in this encounter Insurance Payer Benefit Plan / Subscriber ID Effective Dates Phone Address Type Group [employer] VIVIAN xxxxxxxxxx 2017-Present [employer] [facility] Guarantor Name Account Type Relation to Date of Phone Billing Address Patient Epifanio Pedro Personal/Famil 1990 [address] [phone] [place], [place] (Work) [id number] documented as of this encounter
[2019-01-22 17:53] VITALS: BP 130/72
--- NOTE | 2019-01-22 17:56 | UC ---
Respiratory Complaint HPI - HPI Summary HPI Summary: 28 yo male presents with URI symptoms. He tells me that about 4 weeks ago he had a "cold" for 3 weeks that resolved for 2-3 days and then returned. He has had sinus pain/pressure/congestion, post nasal drip, and intermittent productive cough. He has been taking mucinex and dayquill with good relief of congestion. Denies fever, chills, SOB, rash, n/v. - History of Current Complaint Chief Complaint: UCRespiratory Stated Complaint: COUGH Time Seen by Provider: 01/22/19 17:56 Hx Obtained From: Patient Onset/Duration: Gradual Onset Severity Initially: Mild Severity Currently: Moderate Pain Intensity: 5 Pain Scale Used: 0-10 Numeric - Allergies/Home Medications Allergies/Adverse Reactions: Allergies Allergy/AdvReac Type Severity Reaction Status Date / Time No Known Allergies Allergy Verified 01/22/19 17:53 Home Medications: Home Medications Lisinopril 20 mg PO DAILY 01/22/19 [History Confirmed 01/22/19] PMH/Surg Hx/FS Hx/Imm Hx Cardiovascular History: Hypertension Other History Of: Negative For: HIV, Hepatitis B, Hepatitis C, Anticoagulant Therapy - Surgical History Surgical History: Yes Surgery Procedure, Year, and Place: adenoids removed as a child - Family History Known Family History: Positive: Cardiac Disease, Diabetes, Other - CA Negative: Hypertension, Renal Disease - Social History Occupation: Employed Full-time Lives: With Family Alcohol Use: Rare Substance Use Type: None Smoking Status (MU): Never Smoked Tobacco - Immunization History Most Recent Influenza Vaccination: has not had Most Recent Tetanus Shot: up to date Review of Systems All Other Systems Reviewed And Are Negative: No Constitutional: Positive: Negative Skin: Positive: Negative Eyes: Positive: Negative ENT: Positive: Nasal Discharge, Sinus Congestion, Sinus Pain/Tenderness Respiratory: Positive: Cough Cardiovascular: Positive: Negative Gastrointestinal: Positive: Negative Neurological: Positive: Negative Psychological: Positive: Negative Physical Exam - Summary Physical Exam Summary: GENERAL: NAD. WDWN. No pain distress. SKIN: No rashes, sores, lesions, or open wounds. HEENT: Head: AT/NC Eyes: EOM intact. Conjunctiva clear without inflammation or discharge. Ears: Hearing grossly normal. TMs intact, no bulging, erythema, or edema. Nose: Nasal mucosa mildly swollen and erythematous with yellow discharge. Mild TTP maxillary and frontal sinus. Positive post nasal drip Throat: Posterior oropharynx without exudates, erythema, or tonsillar enlargement. Uvula midline. NECK: Supple. Nontender. No lymphadenopathy. CHEST: CTAB. No r/r/w. No accessory muscle use. Breathing comfortably and in no distress. CV: RRR. Pulses intact. NEURO: Alert. PSYCH: Age appropriate behavior. Triage Information Reviewed: Yes Vital Signs: Initial Vital Signs Temp 97.8 F 01/22/19 17:48 Pulse 80 01/22/19 17:48 Resp 18 01/22/19 17:48 BP 130/72 01/22/19 17:48 Pulse Ox 100 01/22/19 17:48 Vital Signs Reviewed: Yes Respiratory Course/Dx - Course Course Of Treatment: Sinusitis - Differential Dx/Diagnosis Provider Diagnosis: Sinusitis Discharge ED - Sign-Out/Discharge Documenting (check all that apply): Patient Departure All imaging exams completed and their final reports reviewed: No Studies - Discharge Plan Condition: Stable Disposition: HOME Prescriptions: Amoxicillin/Clavulanate TAB* [Augmentin TAB 875*] 875 mg PO BID #14 tab Patient Education Materials: Sinusitis (ED) Referrals: Lory Cheek MD [Primary Care Provider] - Additional Instructions: If you develop a fever, shortness of breath, chest pain, new or worsening symptoms - please call your PCP or go to the ED immediately. - Billing Disposition and Condition Condition: STABLE Disposition: Home
== END 2019-01-22 18:15 | disposition home or self-care (01) ==
LOC: UCEAST 16:48
DX: J32.9 Chronic sinusitis, unspecified (principal); I10 Essential (primary) hypertension
CPT/HCPCS: 99212; G0463